=== PATIENT | male | born 1975 | race Caucasian/White ===

== ENCOUNTER → 2016-11-08 | Outpatient (CLI) | payer BC ==
[2016-11-08 10:35] LABS: CHLORIDE,CL 105 mmol/L (98-110); SODIUM,NA 141 mmol/L (136-146)
== END ==
LOC: MW.CHFP 09:31
PROVIDERS: ATTEND Emergency Medicine
DX: E78.00 Pure hypercholesterolemia, unspecified (principal); R07.9 Chest pain, unspecified
CPT/HCPCS: 36415; 80053; 80061; 93005

== ENCOUNTER 2017-03-29 21:51 | Emergency (ER) | payer BC ==
[2017-03-29] MEDS ORDERED: Sodium Chloride 0.9% 1,000 ML IV ONE (22:35)
--- NOTE | 2017-03-29 22:39 | EDM.PDOC ---
ED HPI GENERAL MEDICAL PROBLEM - General Chief Complaint: General Stated Complaint: PT HAS BODY PAIN Time Seen by Provider: 03/29/17 22:31 Source of Information: Reports: Patient History Limitations: Reports: No Limitations - History of Present Illness INITIAL COMMENTS - FREE TEXT/NARRATIVE: HISTORY AND PHYSICAL: History of present illness: [] Patient with cold symptoms body aches and intermittent headache which is now resolved. He felt fatigued for several days. Patient reports being sore all over. No fevers chills sweats or shaking chills. Mild nausea no vomiting or diarrhea. Denies chest pain abdominal pain shortness of breath or cough. Review of systems: As per history of present illness and below otherwise all systems reviewed and negative. Past medical history: As per history of present illness and as reviewed below otherwise noncontributory. Surgical history: As per history of present illness and as reviewed below otherwise noncontributory. Social history: No reported history of drug or alcohol abuse. Family history: As per history of present illness and as reviewed below otherwise noncontributory. Physical exam: Well-appearing patient normal exam HEENT: Atraumatic, normocephalic, pupils reactive, negative for conjunctival pallor or scleral icterus, mucous membranes moist, throat clear, neck supple, nontender, trachea midline. Lungs: Clear to auscultation, breath sounds equal bilaterally, chest nontender. Heart: S1S2, regular, negative for clicks, rubs, or JVD. Abdomen: Soft, nondistended, nontender. Negative for masses or hepatosplenomegaly. Negative for costovertebral tenderness. Pelvis: Stable nontender. Genitourinary: Deferred. Rectal: Deferred. Extremities: Atraumatic, negative for cords or calf pain. Neurovascular unremarkable. Neuro: Awake, alert, oriented. Cranial nerves II through XII unremarkable. Cerebellum unremarkable. Motor and sensory unremarkable throughout. Exam nonfocal. Diagnostics: [Labs pending] Therapeutics: [Toradol and IV fluids] Impression: [Malaise Myalgias Headache Fatigue] Plan: [Signs and symptoms consistent with viral syndrome versus less likely possibility of systemic illness such as mono.] Workup unremarkable. Patient stable and well-appearing. Vital signs unremarkable. No further workup or treatment indicated. Patient agrees with outpatient follow-up with PCP and strict return precautions given. Definitive disposition and diagnosis as appropriate pending reevaluation and review of above. Generalized Pain Score (Numeric/FACES): 9 - Related Data Allergies Allergy/AdvReac Type Severity Reaction Status Date / Time tramadol Allergy Nausea and Verified 03/29/17 22:08 Vomiting Home Meds: Home Meds Hydrocodone/Acetaminophen [Hydrocodon-Acetaminophn 10-325] 10 - 325 mg PO Q4H PRN 09/30/15 [History] DULoxetine [Cymbalta] 60 mg PO DAILY 03/29/17 [History] Rosuvastatin [Crestor] 20 mg PO DAILY 03/29/17 [History] Past Medical History - Past Health History Medical/Surgical History: Denies Medical/Surgical History HEENT History: Reports: None Cardiovascular History: Reports: High Cholesterol Respiratory History: Reports: None Gastrointestinal History: Reports: None Genitourinary History: Reports: Renal Calculus Musculoskeletal History: Reports: Back Pain, Chronic Neurological History: Reports: None Psychiatric History: Reports: Anxiety Endocrine/Metabolic History: Reports: Obesity/BMI 30+ Immunologic History: Reports: None Oncologic (Cancer) History: Reports: None Dermatologic History: Reports: None - Past Surgical History Cardiovascular Surgical History: Reports: None Neurological Surgical History: Reports: Thoracic Spine Musculoskeletal Surgical History: Reports: Arthroscopic Knee Social & Family History - Family History Family Medical History: Noncontributory - Tobacco Use Smoking Status *Q: Never Smoker Years of Tobacco use: 20 Packs/Tins Daily: 1 Second Hand Smoke Exposure: No - Caffeine Use Caffeine Use: Reports: None - Recreational Drug Use Recreational Drug Use: No Drug Use in Last 12 Months: No ED ROS GENERAL - Review of Systems Review Of Systems: See Below (History of present illness) ED EXAM, GENERAL - Physical Exam Exam: See Below (History of present illness) Course - Vital Signs Last Recorded V/S: Last Vital Signs Temp 36.4 C 03/30/17 01:15 Pulse 67 03/30/17 01:15 Resp 18 03/30/17 01:15 BP 134/90 03/30/17 01:15 Pulse Ox 99 03/30/17 01:15 - Orders/Labs/Meds Orders: Active Orders 24 hr Category Date Time Status EKG Documentation Completion [RC] STAT Care 03/29/17 22:35 Active Peripheral IV Care [RC] . DIRECTED Care 03/29/17 22:35 Active Chest 1V Frontal [CR] Stat Exams 03/29/17 22:35 Taken LYME/B.BURGDORFERI IGG/IGM [REF] Stat Lab 03/29/17 22:50 Received Peripheral IV Insertion Adult [OM.PC] Stat Oth 03/29/17 22:35 Ordered Labs: Laboratory Tests 03/29/17 03/29/17 03/29/17 Range/Units 22:30 22:50 22:50 WBC 3.08 L (4.0-11.0) K/uL RBC 5.21 (4.50-5.90) M/uL Hgb 16.2 (13.0-17.0) g/dL Hct 45.4 (38.0-50.0) % MCV 87.1 (80.0-98.0) fL MCH 31.1 (27.0-32.0) pg MCHC 35.7 (31.0-37.0) g/dL RDW Std Deviation 40.4 (28.0-62.0) fl RDW Coeff of [place]jo 13 (11.0-15.0) % Plt Count 182 (150-400) K/uL MPV 10.00 (7.40-12.00) fL Neut % (Auto) 51.6 (48.0-80.0) % Lymph % (Auto) 32.8 (16.0-40.0) % [place] % (Auto) 14.0 (0.0-15.0) % Eos % (Auto) 1.3 (0.0-7.0) % Baso % (Auto) 0.3 (0.0-1.5) % Neut # (Auto) 1.6 (1.4-5.7) K/uL Lymph # (Auto) 1.0 (0.6-2.4) K/uL [place] # (Auto) 0.4 (0.0-0.8) K/uL Eos # (Auto) 0.0 (0.0-0.7) K/uL Baso # (Auto) 0.0 (0.0-0.1) K/uL Nucleated RBC % 0.0 /100WBC Nucleated RBCs # 0 K/uL Sodium 138 (136-146) mmol/L Potassium 4.4 (3.5-5.1) mmol/L Chloride 105 (98-110) mmol/L Carbon Dioxide 23 (21-31) mmol/L BUN 12 (6.0-23.0) mg/dL Creatinine 1.0 (0.6-1.5) mg/dL Est Cr Clr Drug Dosing 112.08 mL/min Estimated GFR (MDRD) > 60.0 ml/min Glucose 99 (60-110) mg/dL Calcium 9.2 (8.8-10.8) mg/dL Total Bilirubin 0.4 (0.1-1.5) mg/dL AST 50 H (5-40) IU/L ALT 79 H (8-54) IU/L Alkaline Phosphatase 64 (40-150) Troponin I (0.0-0.29) NG/ML Total Protein 7.2 (6.0-8.0) g/dL Albumin 4.3 (3.5-5.0) g/dL Globulin 2.9 (2.0-3.5) g/dL Albumin/Globulin Ratio 1.5 (1.3-2.8) Urine Color YELLOW Urine Appearance CLEAR Urine pH 5.5 (5.0-8.0) Ur Specific [place] >= 1.030 (1.001-1.035) Urine Protein NEGATIVE (NEGATIVE) mg/dL Urine Glucose (UA) NEGATIVE (NEGATIVE) mg/dL Urine Ketones NEGATIVE (NEGATIVE) mg/dL Urine Occult Blood NEGATIVE (NEGATIVE) Urine Nitrite NEGATIVE (NEGATIVE) Urine Bilirubin NEGATIVE (NEGATIVE) Urine Urobilinogen 0.2 (<2.0) EU/dL Ur Leukocyte Esterase NEGATIVE (NEGATIVE) Urine RBC 0-1 (0-2/HPF) Urine WBC 0-2 (0-5/HPF) Ur Epithelial Cells RARE (NONE-FEW) Urine Bacteria OCCASIONAL (NEGATIVE) Urine Mucus LIGHT (NONE-MOD) Monoscreen (NEG) 03/29/17 03/29/17 Range/Units 22:50 22:50 WBC (4.0-11.0) K/uL RBC (4.50-5.90) M/uL Hgb (13.0-17.0) g/dL Hct (38.0-50.0) % MCV (80.0-98.0) fL MCH (27.0-32.0) pg MCHC (31.0-37.0) g/dL RDW Std Deviation (28.0-62.0) fl RDW Coeff of [place] (11.0-15.0) % Plt Count (150-400) K/uL MPV (7.40-12.00) fL Neut % (Auto) (48.0-80.0) % Lymph % (Auto) (16.0-40.0) % [place] % (Auto) (0.0-15.0) % Eos % (Auto) (0.0-7.0) % Baso % (Auto) (0.0-1.5) % Neut # (Auto) (1.4-5.7) K/uL Lymph # (Auto) (0.6-2.4) K/uL [place] # (Auto) (0.0-0.8) K/uL Eos # (Auto) (0.0-0.7) K/uL Baso # (Auto) (0.0-0.1) K/uL Nucleated RBC % /100WBC Nucleated RBCs # K/uL Sodium (136-146) mmol/L Potassium (3.5-5.1) mmol/L Chloride (98-110) mmol/L Carbon Dioxide (21-31) mmol/L BUN (6.0-23.0) mg/dL Creatinine (0.6-1.5) mg/dL Est Cr Clr Drug Dosing mL/min Estimated GFR (MDRD) ml/min Glucose (60-110) mg/dL Calcium (8.8-10.8) mg/dL Total Bilirubin (0.1-1.5) mg/dL AST (5-40) IU/L ALT (8-54) IU/L Alkaline Phosphatase (40-150) Troponin I < 0.10 (0.0-0.29) NG/ML Total Protein (6.0-8.0) g/dL Albumin (3.5-5.0) g/dL Globulin (2.0-3.5) g/dL Albumin/Globulin Ratio (1.3-2.8) Urine Color Urine Appearance Urine pH (5.0-8.0) Ur Specific [place] (1.001-1.035) Urine Protein (NEGATIVE) mg/dL Urine Glucose (UA) (NEGATIVE) mg/dL Urine Ketones (NEGATIVE) mg/dL Urine Occult Blood (NEGATIVE) Urine Nitrite (NEGATIVE) Urine Bilirubin (NEGATIVE) Urine Urobilinogen (<2.0) EU/dL Ur Leukocyte Esterase (NEGATIVE) Urine RBC (0-2/HPF) Urine WBC (0-5/HPF) Ur Epithelial Cells (NONE-FEW) Urine Bacteria (NEGATIVE) Urine Mucus (NONE-MOD) Monoscreen NEGATIVE (NEG) Meds: Medications Discontinued Medications Generic Name Dose Route Start Last Admin Trade Name Raulq PRN Reason Stop Dose Admin Sodium Chloride 1,000 mls @ 999 mls/hr 03/29/17 22:35 03/29/17 22:53 Normal Saline IV 03/29/17 23:35 999 mls/hr .Bolus ONE Administration Ketorolac Tromethamine Confirm 03/30/17 00:10 03/30/17 00:30 Toradol Administered 03/30/17 00:11 Not Given Dose 30 mg .ROUTE .STK-MED ONE Ketorolac Tromethamine 30 mg 03/30/17 00:11 03/30/17 00:10 Toradol IVPUSH 03/30/17 00:12 30 mg ONETIME ONE Administration Departure - Departure Time of Disposition: 01:19 Disposition: Home, Self-Care 01 Condition: Good Clinical Impression: Malaise and fatigue, Myalgia - Discharge Information Instructions: Muscle Pain, Adult Referrals: PCP,None [Primary Care Provider] - Forms: ED Department Discharge Additional Instructions: Is not clear what is causing your feelings of fatigue and body aches. Is possible he may have a viral syndrome. Rest and drink plenty of fluids and take Tylenol and ibuprofen as needed for aches and pains. We checked you for a mononucleosis infection and this was negative. Disease titer is pending. Have your doctor follow that result. Follow-up your DrPoly tomorrow for reevaluation and further workup and treatment as needed. Return immediately for new severe or worsening symptoms - My Orders Last 24 Hours: My Active Orders 03/29/17 22:35 EKG Documentation Completion [RC] STAT Peripheral IV Care [RC] . DIRECTED Chest 1V Frontal [CR] Stat Peripheral IV Insertion Adult [OM.PC] Stat 03/29/17 22:50 LYME/B.BURGDORFERI IGG/IGM [REF] Stat - Assessment/Plan Last 24 Hours: My Active Orders 03/29/17 22:35 EKG Documentation Completion [RC] STAT Peripheral IV Care [RC] . DIRECTED Chest 1V Frontal [CR] Stat Peripheral IV Insertion Adult [OM.PC] Stat 03/29/17 22:50 LYME/B.BURGDORFERI IGG/IGM [REF] Stat
[2017-03-29 23:21] LABS: CHLORIDE,CL 105 mmol/L (98-110); SODIUM,NA 138 mmol/L (136-146)
[2017-03-30] MEDS ORDERED: Ketorolac 30 MG/ML SDV ONE (00:10)
[2017-03-30] MEDS ORDERED: Ketorolac 30 MG/ML SDV IVPUSH ONE (00:11)
[2017-03-30 02:35] VITALS: BP 134/90
--- NOTE | 2017-03-31 13:25 | CR ---
EXAM DATE: 03/29/17 PATIENT'S AGE: 41 Patient: ORLY MIRZA Facility: [place], [place] Site . Site : [id number] Study: XRay Chest [id number]/5/2017 11:40:30 PM Ordering Physician: Wale Cehng Final Report: INDICATION: chest discomfort CHEST, ONE VIEW An AP radiograph of the chest was performed. Comparison: No previous studies are currently available for comparison. The lungs appear clear and no pleural effusions are identified. The cardiomediastinal silhouette and pulmonary vasculature appear normal, as do the visualized bones. IMPRESSION: No acute intrathoracic abnormality identified. ISABEL ARNOLD MD [employer] Dictated by: Lionel Arnold MD @ 03/29/2017 23:58:04 (Electronic Signature) Report Signed by Proxy. [facility] [place]
== END 2017-03-30 01:30 | disposition home or self-care (01) ==
LOC: MW.ED 21:51
DX: M79.1 Myalgia (principal); R53.81 Other malaise; R53.83 Other fatigue; E78.00 Pure hypercholesterolemia, unspecified; E66.9 Obesity, unspecified; Z88.5 Allergy status to narcotic agent; Z79.899 Other long term (current) drug therapy; Z87.442 Personal history of urinary calculi; Z68.32 Body mass index [BMI] 32.0-32.9, adult
CPT/HCPCS: 36415; 71010; 80053; 81001; 84484; 85025; 86308; 86618; 93005; 96361; 96374; 99284; J1885; J7040

== ENCOUNTER 2024-11-11 09:26 | Emergency (ER) | payer BC ==
[2024-11-11] MEDS: Iopamidol 755 MG/ML 500 ML Multipack Bottle IVPUSH ONE (10:53)
[2024-11-11] MEDS: Sodium Chloride 0.9% 1,000 ML IV ONE (10:55)
[2024-11-11] MEDS: Ketorolac 30 MG/ML SDV IVPUSH ONE (10:55)
[2024-11-11] MEDS: Ondansetron 4 MG/2 ML SDV IVPUSH ONE (10:56)
[2024-11-11] MEDS: Morphine 2 MG/ML SYRINGE IVPUSH PRN (10:56)
[2024-11-11] MEDS: Acetaminophen 500 MG Tab PO ONE (10:56)
[2024-11-11 11:39] LABS: A/G RATIO 1.3 (0.9-1.6); ALBUMIN 3.9 g/dL (3.4-5.0); BILIRUBIN TOTAL 0.6 mg/dL (0.2-1.0); C-REACTIVE PROTEIN 0.24 mg/dL (<0.3); CALCIUM 8.8 mg/dL (8.5-10.1); CREATININE 1.3 mg/dL (0.8-1.3); EST CRCL DRUG DOSING (CG) 79.39 mL/min
[2024-11-11 11:45] LABS: BASOPHILS ABSOLUTE AUTO 0.03 K/uL (0.00-0.20); BASOPHILS PERCENT AUTO 0.6 % (0.0-1.0); EOSINOPHILS ABSOLUTE AUTO 0.07 K/uL (0.00-0.45); EOSINOPHILS PERCENT AUTO 1.4 % (0.0-6.0); HEMATOCRIT 44.8 % (42.0-52.0); HEMOGLOBIN 15.9 g/dL (14.0-18.0); IMMATURE GRAN ABSOLUTE AUTO 0.02 K/uL (0.00-0.05); IMMATURE GRAN PERCENT AUTO 0.4 % (0.0-0.4); LYMPHOCYTES ABSOLUTE AUTO 1.34 K/uL (1.00-4.80); LYMPHOCYTES PERCENT AUTO 26.2 % (24.0-44.0); MEAN CORPUSCULAR HEMOGLOBIN 30.6 pg (28.0-32.0); MEAN CORPUSCULAR HGB CONC 35.5 g/dL (32.0-36.0); MEAN CORPUSCULAR VOLUME 86.3 fL (83.0-99.0); MEAN PLATELET VOLUME 9.3 fL (9.4-12.4); MONOCYTES ABSOLUTE AUTO 0.48 K/uL (0.00-0.80); MONOCYTES PERCENT AUTO 9.4 % (0.0-8.0); NEUTROPHILS ABSOLUTE AUTO 3.17 K/uL (1.80-7.70); PLATELET COUNT,PLT 215 K/uL (150-400); RED BLOOD CELL COUNT 5.19 M/uL (4.52-5.90); WHITE BLOOD CELL COUNT,WBC 5.11 K/uL (3.9-11.3)
[2024-11-11 12:20] VITALS: BP 129/84; PULSE 75
== END 2024-11-11 12:53 | disposition home or self-care (01) ==
LOC: MW.ED 09:26
DX: J34.0 Abscess, furuncle and carbuncle of nose (principal); E78.00 Pure hypercholesterolemia, unspecified; Z88.5 Allergy status to narcotic agent; Z79.899 Other long term (current) drug therapy
CPT/HCPCS: 36415; 70487; 80053; 85025; 85652; 86140; 96361; 96374; 96375; 99284; A9270; J1100; J1885; J2270; J2405; J7030; Q9967

== ENCOUNTER 2025-05-31 22:17 | Emergency (ER) | payer BC ==
[2025-05-31] MEDS: Ketorolac 30 MG/ML SDV IVPUSH ONE ×2 (22:33→22:57)
[2025-05-31 22:35] LABS: BASOPHILS ABSOLUTE AUTO 0.02 K/uL (0.00-0.20); BASOPHILS PERCENT AUTO 0.2 % (0.0-1.0); EOSINOPHILS ABSOLUTE AUTO 0.14 K/uL (0.00-0.45); EOSINOPHILS PERCENT AUTO 1.5 % (0.0-6.0); IMMATURE GRAN ABSOLUTE AUTO 0.03 K/uL (0.00-0.05); IMMATURE GRAN PERCENT AUTO 0.3 % (0.0-0.4); LYMPHOCYTES ABSOLUTE AUTO 1.84 K/uL (1.00-4.80); LYMPHOCYTES PERCENT AUTO 20.2 % (24.0-44.0); MEAN PLATELET VOLUME 8.2 fL (9.4-12.4); MONOCYTES ABSOLUTE AUTO 0.88 K/uL (0.00-0.80); MONOCYTES PERCENT AUTO 9.7 % (0.0-8.0); NEUTROPHILS ABSOLUTE AUTO 6.20 K/uL (1.80-7.70); NEUTROPHILS PERCENT AUTO 68.1 % (41.0-71.0); NRBC ABSOLUTE 0.00 K/uL (0.00-0.02); NRBC PERCENT 0.0 /100WBC (0.0-0.2); PLATELET COUNT,PLT 396 K/uL (150-400); RED BLOOD CELL COUNT 4.58 M/uL (4.52-5.90); WHITE BLOOD CELL COUNT,WBC 9.11 K/uL (3.9-11.3)
[2025-05-31 22:37] LABS: APPEARANCE,URINE CLOUDY; GLUCOSE,URINE NEGATIVE (NEGATIVE); OCCULT BLOOD,URINE LARGE (NEGATIVE)
[2025-05-31 22:44] LABS: EPITHELIAL CELLS,URINE OCCASIONAL (NONE-FEW)
[2025-05-31 22:53] LABS: A/G RATIO 1.0 (0.9-1.6); ALANINE AMINOTRANSFERASE,ALT 46 IU/L (14-63); ASPARTATE AMNIOTRANSFERASE,AST 35 IU/L (15-37); BILIRUBIN TOTAL 0.9 mg/dL (0.2-1.0); BLOOD UREA NITROGEN,BUN 10 mg/dL (7.0-18.0); CARBON DIOXIDE,CO2 27.4 mmol/L (21.0-32.0); CHLORIDE,CL 101 mmol/L (98-107); CREATININE 1.3 mg/dL (0.8-1.3); GLUCOSE RANDOM 93 mg/dL (74-106); POTASSIUM,K 3.4 mmol/L (3.5-5.1); PROTEIN TOTAL,TP 7.3 g/dL (6.4-8.2); SODIUM,NA 142 mmol/L (136-148)
[2025-05-31 22:55] LABS: ESTIMATED GFR 68 mL/min (>60)
[2025-06-01] MEDS: Ondansetron 4 MG/2 ML SDV IVPUSH ONE (00:36)
[2025-06-01 01:45] VITALS: BP 148/90; PULSE 88
== END 2025-06-01 01:44 | disposition home or self-care (01) ==
LOC: MW.ED 22:17
DX: N13.2 Hydronephrosis with renal and ureteral calculous obstruction (principal); E78.00 Pure hypercholesterolemia, unspecified; E66.9 Obesity, unspecified; Z79.899 Other long term (current) drug therapy; Z88.8 Allergy status to other drugs, medicaments and biological substances
CPT/HCPCS: 36415; 74176; 80053; 81001; 85025; 96374; 96375; 99284; A9270; J1171; J1885; J2405; J7030